=== PATIENT | female | born 1950 | race Asian ===

== ENCOUNTER 2018-09-20 10:50 | Observation (INO) | payer OTHER ==
[2018-09-20] MEDS ORDERED: ASPIRIN 81 MG CHEWABLE TABLETS PO ONE (11:33)
[2018-09-20 11:36] VITALS: BMI 23.4
--- NOTE | 2018-09-20 11:50 | PDOC ---
History of Present Illness - General Stated Complaint: CHEST PAIN Time Seen by Provider: 09/20/18 11:05 History Source: Patient, Spouse Exam Limitations: No Limitations - History of Present Illness Initial Comments: 09/20/18 11:43 67-year-old female with history of hypertension and high cholesterol presents with intermittent chest pain for the last 2 days. Patient first noted chest pain with significant dyspnea when she was climbing the stairs heading to [employer] on Wednesday, resolved with rest, but reports recurrence of the pain with exertion since then. Primary physician is in [facility] [place], does not recall ever having a stress test. Denies any travel history, no personal or family history of hypercoagulability, no symptoms of DVT. No fevers or chills or cough No smoking or drug use No weight loss or weight gain or night sweats Past History - Past Medical History Allergies/Adverse Reactions: Allergies Allergy/AdvReac Type Severity Reaction Status Date / Time No Known Allergies Allergy Verified 09/20/18 11:33 COPD: No - Suicide/Smoking/Psychosocial Hx Smoking History: Never smoked Have you smoked in the past 12 months: No Information on smoking cessation initiated: No Hx Alcohol Use: No Drug/Substance Use Hx: No Review of Systems - Review of Systems Constitutional: No: Chills, Fever HEENTM: No: Nose Congestion Respiratory: Yes: SOB with Exertion. No: Cough Cardiac (ROS): Yes: Chest Pain. No: Edema, Lightheadedness, Syncope ABD/GI: No: Nausea, Vomiting Neurological: No: Headache All Other Systems: Reviewed and Negative *Physical Exam - Vital Signs Last Vital Signs Temp Pulse Resp BP Pulse Ox 98.6 F 93 H 16 154/84 100 09/20/18 10:50 09/20/18 10:50 09/20/18 10:50 09/20/18 10:50 09/20/18 10:50 - Physical Exam Comments: 09/20/18 11:48 Vitals are within normal limits, heart rate 90s GENERAL: The patient is awake, alert, and fully oriented, in no acute distress. HEAD: Normal with no signs of trauma. EYES: PERRL, EOMI, sclera anicteric, conjunctiva clear with no pallor. ENT: oropharynx clear. Moist mucous membranes. NECK: Normal range of motion, supple without lymphadenopathy, JVD, or masses. LUNGS: Breath sounds equal, clear to auscultation bilaterally. No wheeze/ crackles. HEART: Regular rate and rhythm, normal S1 and S2 without murmur or rub. ABDOMEN: Soft/nontender/nondistended. BS wnl. No guarding or rebound. No palpable masses. No hepatosplenomegaly. EXTREMITIES: Normal range of motion, no edema. 2+ distal pulses. No cords, erythema, or tenderness. NEUROLOGICAL: Cranial nerves II through XII grossly intact. Normal speech, normal gait. PSYCH: Normal mood, normal affect. SKIN: Warm, Dry, no rashes or lesions noted. Moderate Sedation - Procedure Monitoring Vital Signs: Procedure Monitoring Vital Signs Temperature 98.6 F 09/20/18 10:50 Pulse Rate 93 H 09/20/18 10:50 Respiratory Rate 16 09/20/18 10:50 Blood Pressure 154/84 09/20/18 10:50 O2 Sat by Pulse Oximetry (%) 100 09/20/18 10:50 Heart Score/ECG Review #1 ECG reviewed & interpreted by me at: 10:56 General ECG Interpretation: Sinus Rhythm, Normal Rate (96), Normal Intervals ( qtc 429), No acute ischemic changes (q in avl) Compared to previous ECG there are: Previous ECG unavail ED Treatment Course - LABORATORY CBC & Chemistry Diagram: 09/20/18 11:57 09/20/18 11:57 - RADIOLOGY Radiology Studies Ordered: Category Date Time Status CHEST X-RAY PORTABLE* [RAD] Stat Radiology 09/20/18 11:34 Ordered Medical Decision Making - Medical Decision Making 09/20/18 11:52 67-year-old female with hypertension and high cholesterol presents with exertional chest pain and dyspnea for the last 2 days, concerning for new onset angina. Hemodynamically stable here without acute EKG changes. Labs, EKG Chest x-ray Aspirin Admission, requesting Dr. Sorensen for cardiology through family referral 09/20/18 13:20 labs wnl, trop negative. Accepted for obs tele by Dr. Beck, signout given to Dr. Agustin. They will consult Dr. Sorensen per patient request. *DC/Admit/Observation/Transfer Diagnosis at time of Disposition: Exertional chest pain - Discharge Dispostion Condition at time of disposition: Fair Decision to Admit order: Yes - Referrals - Patient Instructions - Post Discharge Activity
[2018-09-20] MEDS ORDERED: ASPIRIN 81 MG CHEWABLE TABLETS ONE (11:52)
[2018-09-20 12:04] LABS: BASO % 1.2 % (0-2.0); EOS % 0.5 % (0-4.5); HEMATOCRIT 40.5 % (32.4-45.2); LYMPH % 24.9 % (8-40); MCHC 34.6 g/dl (32.0-36.0); MEAN CELL VOLUME 86.7 fl (80-96); MEAN PLT VOLUME 8.3 fl (7.5-11.1); NEUT % 67.4 % (42.8-82.8); PLATELET COUNT 162 K/MM3 (134-434); RBC 4.67 M/mm3 (3.60-5.2); RDW 13.2 % (11.6-15.6); WHITE BLOOD COUNT 4.3 K/mm3 (4.0-10.0)
[2018-09-20 12:14] LABS: URINE APPEARANCE CLEAR; URINE BILIRUBIN NEGATIVE (<2.0 mg/dL); URINE COLOR STRAW; URINE GLUCOSE (UA) NEGATIVE (NEGATIVE); URINE KETONE NEGATIVE (NEGATIVE); URINE LEUK ESTERASE NEGATIVE (NEGATIVE); URINE NITRITE NEGATIVE (NEGATIVE); URINE PROTEIN NEGATIVE (NEGATIVE); URINE UROBILINOGEN NEGATIVE mg/dL (0.2-1.0)
[2018-09-20 12:15] LABS: INR 1.04 (0.83-1.09); PROTHROMBIN TIME (PATIENT) 12.3 SEC (9.7-13.0)
[2018-09-20 12:21] LABS: URINE MUCUS RARE
[2018-09-20 12:34] LABS: ALBUMIN 4.2 g/dl (3.4-5.0); ALK PHOS 56 U/L (45-117); ANION GAP 4 MMOL/L (8-16); BILIRUBIN,TOTAL 0.4 mg/dL (0.2-1); BLOOD UREA NITROGEN 13 mg/dL (7-18); CALCIUM 8.9 mg/dL (8.5-10.1); CHLORIDE 107 mmol/L (98-107); CO2 28 mmol/L (21-32); CREATININE 0.6 mg/dL (0.55-1.3); GLUCOSE,RANDOM 124 mg/dL (74-106); MAGNESIUM 2.3 mg/dL (1.8-2.4); SGOT/AST 35 U/L (15-37); SGPT/ALT 43 U/L (13-61); SODIUM 139 mmol/L (136-145); TOT PROT 7.3 g/dl (6.4-8.2)
--- NOTE | 2018-09-20 13:50 | HP ---
CHIEF COMPLAINT: chest pain PCP: dr chadwick in [facility] [place] HISTORY OF PRESENT ILLNESS: 67-year-old female with history of hypertension and high cholesterol presents with intermittent chest pain since 2011 but since Wednesday it is persistent. Pt states that on Wednesday she went to [employer]dhist and while going uphill she got short of breath which kept on getting worse since she take rest. Pt states that after buddhist when she came back to her house she started feeling pressure in chest and which got better after taking aspirin. States this is the first time it happen. Pain was present on left side, pressure type, non radiating, got better after aspirin, comes back on walking. DEnies palpitations, lightheadedness, dizziness, swelling in legs. Denies orthopnea, Denies fever, chills, cough. Denies recent travel No smoking or drug use No weight loss or weight gain or night sweats ER course was notable for: (1)cbc, cmp, troponin (2)cxr (3) Recent Travel:no PAST MEDICAL HISTORY:htn, hld, cirrhosis of liver PAST SURGICAL HISTORY:back surgery in 2011 Social History: Smoking:no Alcohol:no Drugs: no Family History:mother from stroke at age of 74 sister from cancer Allergies No Known Allergies Allergy (Verified 09/20/18 11:33) HOME MEDICATIONS: REVIEW OF SYSTEMS CONSTITUTIONAL: Absent: fever, chills, diaphoresis, generalized weakness, malaise, loss of appetite, weight change HEENT: Absent: rhinorrhea, nasal congestion, throat pain, throat swelling, difficulty swallowing, mouth swelling, ear pain, eye pain, visual changes CARDIOVASCULAR: Absent: chest pain, syncope, palpitations, irregular heart rate, lightheadedness , peripheral edema RESPIRATORY: Absent: cough, shortness of breath, dyspnea with exertion, orthopnea, wheezing, stridor, hemoptysis GASTROINTESTINAL: Absent: abdominal pain, abdominal distension, nausea, vomiting, diarrhea, constipation, melena, hematochezia GENITOURINARY: Absent: dysuria, frequency, urgency, hesitancy, hematuria, flank pain, genital pain MUSCULOSKELETAL: Absent: myalgia, arthralgia, joint swelling, back pain, neck pain SKIN: Absent: rash, itching, pallor HEMATOLOGIC/IMMUNOLOGIC: Absent: easy bleeding, easy bruising, lymphadenopathy, frequent infections ENDOCRINE: Absent: unexplained weight gain, unexplained weight loss, heat intolerance, cold intolerance NEUROLOGIC: Absent: headache, focal weakness or paresthesias, dizziness, unsteady gait, seizure, mental status changes, bladder or bowel incontinence PSYCHIATRIC: Absent: anxiety, depression, suicidal or homicidal ideation, hallucinations. PHYSICAL EXAMINATION Vital Signs - 24 hr 09/20/18 10:50 Temperature 98.6 F Pulse Rate 93 H Respiratory 16 Rate Blood Pressure 154/84 O2 Sat by Pulse 100 Oximetry (%) GENERAL: Awake, alert, and fully oriented, in no acute distress. HEAD: Normal with no signs of trauma. EYES: Pupils equal, round and reactive to light, EARS, NOSE, THROAT: Ears normal, nares patent, oropharynx clear without exudates. Moist mucous membranes. NECK:no JVD, or masses. LUNGS: Breath sounds equal, clear to auscultation bilaterally. No wheezes, and no crackles. No accessory muscle use. HEART: Regular rate and rhythm, normal S1 and S2 without murmur, rub or gallop. ABDOMEN: Soft, nontender, not distended, normoactive bowel sounds, no guarding, no rebound, no masses. MUSCULOSKELETAL: Normal range of motion at all joints. No bony deformities or tenderness. No CVA tenderness. UPPER EXTREMITIES: 2+ pulses, warm, well-perfused. No cyanosis. No clubbing. No peripheral edema. LOWER EXTREMITIES: , warm, well-perfused. No calf tenderness. No peripheral edema. NEUROLOGICAL: Cranial nerves II-XII intact. Normal speech. PSYCHIATRIC: Cooperative. Good eye contact. Appropriate mood and affect. SKIN: Warm, dry, normal turgor, no rashes or lesions noted, normal capillary refill. Laboratory Results - last 24 hr 09/20/18 09/20/18 09/20/18 11:57 11:57 11:57 WBC 4.3 RBC 4.67 Hgb 14.0 Hct 40.5 MCV 86.7 MCH 30.0 MCHC 34.6 RDW 13.2 Plt Count 162 MPV 8.3 Absolute Neuts (auto) 2.9 Neutrophils % 67.4 Lymphocytes % 24.9 Monocytes % 6.0 Eosinophils % 0.5 Basophils % 1.2 Nucleated RBC % 0 PT with INR 12.30 INR 1.04 Sodium 139 Potassium 4.0 Chloride 107 Carbon Dioxide 28 Anion Gap 4 L BUN 13 Creatinine 0.6 Creat Clearance w eGFR > 60 Random Glucose 124 H Calcium 8.9 Magnesium 2.3 Total Bilirubin 0.4 AST 35 ALT 43 Alkaline Phosphatase 56 Creatine Kinase 159 Creatine Kinase Index 1.6 CK-MB (CK-2) 2.6 Troponin I < 0.02 Total Protein 7.3 Albumin 4.2 Lipase Urine Color Urine Appearance Urine pH Ur Specific [place] Urine Protein Urine Glucose (UA) Urine Ketones Urine Blood Urine Nitrite Urine Bilirubin Urine Urobilinogen Ur Leukocyte Esterase Urine WBC (Auto) Urine RBC (Auto) Urine Mucus 09/20/18 09/20/18 11:57 12:05 WBC RBC Hgb Hct MCV MCH MCHC RDW Plt Count MPV Absolute Neuts (auto) Neutrophils % Lymphocytes % Monocytes % Eosinophils % Basophils % Nucleated RBC % PT with INR INR Sodium Potassium Chloride Carbon Dioxide Anion Gap BUN Creatinine Creat Clearance w eGFR Random Glucose Calcium Magnesium Total Bilirubin AST ALT Alkaline Phosphatase Creatine Kinase Creatine Kinase Index CK-MB (CK-2) Troponin I Total Protein Albumin Lipase 228 Urine Color Straw Urine Appearance Clear Urine pH 7.0 Ur Specific [place] 1.005 L Urine Protein Negative Urine Glucose (UA) Negative Urine Ketones Negative Urine Blood 1+ H Urine Nitrite Negative Urine Bilirubin Negative Urine Urobilinogen Negative Ur Leukocyte Esterase Negative Urine WBC (Auto) None Urine RBC (Auto) 2 Urine Mucus Rare ASSESSMENT/PLAN: Chest pain R/o acs heart score 4 initial set of troponin normal. get second set echo cardiac monitoring aspirin 81 mg daily atorvastatin 20 daily. Pt has h/o cirrhosis but is taking a cholestrol meds in home. LFT stable lipid profile. monitor vital monitor intake output o2 to keep spo2> 90 HTN we will start her on pam inhibitor HLD lipid profile statin h/o cirrhotic liver as per pt she is getting mri every 6 months and her cirrhosis is biopsy proven albumin 4.2 we will get pt/inr fluid: orally allowed electrolyte: repeat in am nutrition: low cholesterol and sodium diet dvt pro: scd gi pro; not required dispo: obs tele Visit type - Emergency Visit Emergency Visit: Yes ED Registration Date: 09/20/18 Care time: The patient presented to the Emergency Department on the above date and was hospitalized for further evaluation of their emergent condition. - New Patient This patient is new to me today: Yes Date on this admission: 09/20/18 - Critical Care Critical Care patient: No
[2018-09-20] MEDS ORDERED: amLODIPine BESYLATE 5 MG TABLET (FP) PO SCH (15:00)
[2018-09-20] MEDS ORDERED: NITROGLYCERIN SUBLINGUAL 1/150 0.4 MG TAB SL PRN (16:38)
--- NOTE | 2018-09-20 16:38 | PN ---
Teaching Attending Note Name of Resident: Donald Agustin ATTENDING PHYSICIAN STATEMENT I saw and evaluated the patient. I reviewed the resident's note and discussed the case with the resident. I agree with the resident's findings and plan as documented. Mrs Neal is a very pleasant 67 year old female who comes in with chest pain. She says she was at [employer] on Wednesday, and while walking up the stairs she developed substernal chest pressure. She says it is mainly in her chest and does not radiate. It was noted on exertion and went away with rest. It is a pressure like pain. It has not resolved and she presented here. She is currently pain free but is also not moving. She denies fevers, chills, lightheadedness, dizziness, passing out, shortness of breath, coughing, nausea, vomiting, diarrhea, constipation, pain or difficulty urinating, or swelling. PMHx 1. HTN 2. HLD PSHx 1. None Allergies NKDA Medications -patient does not know and did not bring SHx -denies smoking, alcohol, recreational drug use FHx 1. Father: stroke () 2. Sister: gastric cancer ROS -full review of systems obtained, as per HPI and otherwise negative OBJECTIVE: Last Vital Signs Temp Pulse Resp BP Pulse Ox 37.0 C 93 H 16 154/84 100 09/20/18 10:50 09/20/18 10:50 09/20/18 10:50 09/20/18 10:50 09/20/18 10:50 Gen: nad HEENT: perrla, eomi Pulm: ctab w/o w/r/r CV: rrr w/o m/r/g Abd: +bs, s/nt/nd Ext: no c/c/e CBC, BMP 09/20/18 11:57 09/20/18 11:57 ASSESSMENT AND PLAN: Problem List - Problems (1) Unstable angina Assessment/Plan: -admit to telemetry observation -cardiology consulted, will consult Dr Nash Sorensen per patient request -cardiac enzymes x3 -ECHO -stress test in am -will hold on beta shalini since planning for stress test -oxygen, nitro, aspirin, lisinopril, and lipitor Code(s): I20.0 - UNSTABLE ANGINA (2) HTN (hypertension) Assessment/Plan: -lisinopril started -monitor and increase if needed Code(s): I10 - ESSENTIAL (PRIMARY) HYPERTENSION (3) HLD (hyperlipidemia) Assessment/Plan: -lipitor Code(s): E78.5 - HYPERLIPIDEMIA, UNSPECIFIED
[2018-09-20] MEDS ORDERED: LISINOPRIL 5 MG TABLET (FP) ONE (17:15)
[2018-09-20] MEDS: LISINOPRIL 5 MG TABLET (FP) PO SCH (17:30)
--- NOTE | 2018-09-20 19:50 | CON.CARD ---
Consult Consult Specialty:: Cardiology Referred by:: Requested by patient Reason for Consultation:: Cardiac evaluation - History of Present Illness Chief Complaint: Chest pain and SOB on exertion History of Present Illness: Patient is a 67 year old [place] female with underlying history of HTN, hypercholesterolemia, fatty liver with cirrhosis (followed by GI affiliated with [facility]) who presents with episode of shortness of breath on walking on Wednesday (2 days ago) and mid sternal chest tightness. She also had some nausea and vomiting that day, but her symptoms subsided and she did not seek medical attention. Her symptoms recurred again early this am and was referred by a friend to come to my office where she was advised to go to the hospital. Of note , she states that she had an echocardiogram last year by a integration developer in [place]. Currently she denies SOB or palpitations. She denies paroxysmal nocturnal dyspnea or orthopnea. She denies fever or chills. She denies nausea, vomiting, diarrhea or abdominal pain. She denies headache or lightheadedness at this time. - History Source History Provided By: Patient, Family Member, Medical Record Limitations to Obtaining History: No Limitations - Past Medical History Cardio/Vascular: Yes: HTN, Hyperlipdemia Pulmonary: No: Asthma, COPD Gastrointestinal: Yes: GERD, Other (Fatty liver, cirrhosis) Endocrine: Yes: Diabetes Mellitus (Pre diabetes), Hypothyroidism - Past Surgical History Additional Surgical History: Back surgery - Alcohol/Substance Use Hx Alcohol Use: No - Smoking History Smoking history: Never smoked Have you smoked in the past 12 months: No Home Medications - Allergies Allergies/Adverse Reactions: Allergies Allergy/AdvReac Type Severity Reaction Status Date / Time No Known Allergies Allergy Verified 09/20/18 11:33 - Home Medications Home Medications: Ambulatory Orders Amlodipine Besylate 5 mg PO ASDIR 09/20/18 Ascorbic Acid [Vitamin C] 500 mg PO ASDIR 09/20/18 Aspirin [Aspirin EC] 81 mg PO DAILY 09/20/18 Dexlansoprazole [Dexilant] 60 mg PO ASDIR 09/20/18 Lipase/Protease/Amylase [Creon Dr 36,000 Units Capsule] 1 each PO ASDIR Simvastatin [Zocor -] 20 mg PO HS 09/20/18 Ursodiol [Actigall] 300 mg PO ASDIR 09/20/18 Family Disease History - Family Disease History Family Disease History: CA: Sister (Gastric), Other: Mother (CVA) Other Family History: History of DM Review of Systems - Review of Systems Constitutional: denies: Chills, Fever Cardiovascular: reports: Chest Pain, Shortness of Breath. denies: Palpitations Respiratory: reports: SOB, SOB on Exertion. denies: Cough, Hemoptysis, Orthopnea, PND Gastrointestinal: reports: Nausea, Vomiting. denies: Abdominal Pain, Constipation, Diarrhea, Melena, Rectal Bleeding Musculoskeletal: denies: Back Pain, Joint Pain Neurological: reports: Dizziness. denies: Headache, Seizure, Syncope Vital Signs: Vital Signs Temperature 97.7 F 09/20/18 17:45 Pulse Rate 72 09/20/18 17:45 Respiratory Rate 14 09/20/18 17:45 Blood Pressure 118/73 09/20/18 17:45 O2 Sat by Pulse Oximetry (%) 97 09/20/18 17:45 Eyes: Yes: PERRL HENT: Yes: Atraumatic Neck: Yes: Supple Respiratory: Yes: CTA Bilaterally Gastrointestinal: Yes: Normal Bowel Sounds, Soft. No: Tenderness Cardiovascular: Yes: Regular Rate and Rhythm JVD: No Carotid Bruit: No PMI: Non-Displaced Heart Sounds: Yes: S1, S2. No: Gallop Murmur: No: Systolic Murmur, Diastolic Murmur Edema: No - Other Data Labs, Other Data: CBC, BMP 09/20/18 11:57 09/20/18 11:57 INR, PTT INR 1.04 (0.83-1.09) 09/20/18 11:57 Troponin, BNP 09/20/18 11:57 Troponin I < 0.02 Laboratory Results - last 24 hr 09/20/18 09/20/18 09/20/18 11:57 11:57 11:57 WBC 4.3 RBC 4.67 Hgb 14.0 Hct 40.5 MCV 86.7 MCH 30.0 MCHC 34.6 RDW 13.2 Plt Count 162 MPV 8.3 Absolute Neuts (auto) 2.9 Neutrophils % 67.4 Lymphocytes % 24.9 Monocytes % 6.0 Eosinophils % 0.5 Basophils % 1.2 Nucleated RBC % 0 PT with INR 12.30 INR 1.04 Sodium 139 Potassium 4.0 Chloride 107 Carbon Dioxide 28 Anion Gap 4 L BUN 13 Creatinine 0.6 Creat Clearance w eGFR > 60 Random Glucose 124 H Calcium 8.9 Magnesium 2.3 Total Bilirubin 0.4 AST 35 ALT 43 Alkaline Phosphatase 56 Creatine Kinase 159 Creatine Kinase Index 1.6 CK-MB (CK-2) 2.6 Troponin I < 0.02 Total Protein 7.3 Albumin 4.2 Lipase Urine Color Urine Appearance Urine pH Ur Specific [place] Urine Protein Urine Glucose (UA) Urine Ketones Urine Blood Urine Nitrite Urine Bilirubin Urine Urobilinogen Ur Leukocyte Esterase Urine WBC (Auto) Urine RBC (Auto) Urine Mucus 09/20/18 09/20/18 11:57 12:05 WBC RBC Hgb Hct MCV MCH MCHC RDW Plt Count MPV Absolute Neuts (auto) Neutrophils % Lymphocytes % Monocytes % Eosinophils % Basophils % Nucleated RBC % PT with INR INR Sodium Potassium Chloride Carbon Dioxide Anion Gap BUN Creatinine Creat Clearance w eGFR Random Glucose Calcium Magnesium Total Bilirubin AST ALT Alkaline Phosphatase Creatine Kinase Creatine Kinase Index CK-MB (CK-2) Troponin I Total Protein Albumin Lipase 228 Urine Color Straw Urine Appearance Clear Urine pH 7.0 Ur Specific [place] 1.005 L Urine Protein Negative Urine Glucose (UA) Negative Urine Ketones Negative Urine Blood 1+ H Urine Nitrite Negative Urine Bilirubin Negative Urine Urobilinogen Negative Ur Leukocyte Esterase Negative Urine WBC (Auto) None Urine RBC (Auto) 2 Urine Mucus Rare NSR, no ST-T abnormality Imaging - Results Chest X-ray: Report Reviewed (Unremarkable) EKG: Report Reviewed Problem List - Problems (1) Shortness of breath Code(s): R06.02 - SHORTNESS OF BREATH (2) Pre-diabetes Code(s): R73.03 - PREDIABETES (3) GERD (gastroesophageal reflux disease) Code(s): K21.9 - GASTRO-ESOPHAGEAL REFLUX DISEASE WITHOUT ESOPHAGITIS (4) Fatty liver Code(s): K76.0 - FATTY (CHANGE OF) LIVER, NOT ELSEWHERE CLASSIFIED (5) Exertional chest pain Code(s): R07.9 - CHEST PAIN, UNSPECIFIED (6) HLD (hyperlipidemia) Code(s): E78.5 - HYPERLIPIDEMIA, UNSPECIFIED Qualifiers: Hyperlipidemia type: pure hypercholesterolemia Qualified Code(s): E78.00 - Pure hypercholesterolemia, unspecified; E78.0 - Pure hypercholesterolemia (7) HTN (hypertension) Code(s): I10 - ESSENTIAL (PRIMARY) HYPERTENSION Qualifiers: Hypertension type: essential hypertension Qualified Code(s): I10 - Essential (primary) hypertension Assessment/Plan 1. Chest pain and shortness of breath, rule out CAD 2. HTN 3. Hypercholesterolemia 4. Pre-diabetes mellitus 5. Fatty liver with previous history of abnormal LFT currently stable 6. GERD PLAN: 1. Serial troponins 2. Continue Amlodipine 5 mg QD 3. Patient given Lisinopril 5 mg QD 4. ASA 5. Statin therapy. Check fasting lipid panel 6. Check Hbg A1C 7. Agree with transthoracic echocardiography to assess LV/RV and valvular function 8. If above enzymes are negative, will decide on nuclear MPI either inpatient or as outpatient. Keep NPO in the morning 9. PPI Further plans are to follow Nash Sorensen MD
[2018-09-20] MEDS ORDERED: ATORVASTATIN CA 20 MG TABLET (FP) PO SCH (22:00)
[2018-09-21 06:47] LABS: INR 1.08 (0.83-1.09); PROTHROMBIN TIME (PATIENT) 12.7 SEC (9.7-13.0)
[2018-09-21 06:49] LABS: BASO % 0.6 % (0-2.0); HEMATOCRIT 37.7 % (32.4-45.2); HEMOGLOBIN 13.2 GM/dL (10.7-15.3); LYMPH % 49.4 % (8-40); MCH 29.9 pg (25.7-33.7); MCHC 35.1 g/dl (32.0-36.0); MEAN CELL VOLUME 85.2 fl (80-96); MEAN PLT VOLUME 8.6 fl (7.5-11.1); MONO % 6.4 % (3.8-10.2); NEUT % 41.6 % (42.8-82.8); PLATELET COUNT 153 K/MM3 (134-434); RBC 4.42 M/mm3 (3.60-5.2); RDW 13.1 % (11.6-15.6); WHITE BLOOD COUNT 4.8 K/mm3 (4.0-10.0)
[2018-09-21 07:22] LABS: ALBUMIN 3.8 g/dl (3.4-5.0); ALK PHOS 48 U/L (45-117); ANION GAP 7 MMOL/L (8-16); BILIRUBIN,TOTAL 0.4 mg/dL (0.2-1); BLOOD UREA NITROGEN 17 mg/dL (7-18); CALCIUM 8.7 mg/dL (8.5-10.1); CHLORIDE 109 mmol/L (98-107); CHOLESTEROL 127 mg/dL (50-200); CO2 27 mmol/L (21-32); CREATININE 0.6 mg/dL (0.55-1.3); GLUCOSE,RANDOM 82 mg/dL (74-106); HDL CHOLESTEROL 47 mg/dL (40-60); MAGNESIUM 2.3 mg/dL (1.8-2.4); PHOSPHOROUS 3.8 mg/dL (2.5-4.9); POTASSIUM 3.9 mmol/L (3.5-5.1); SGOT/AST 26 U/L (15-37); SGPT/ALT 33 U/L (13-61); SODIUM 143 mmol/L (136-145); TOT PROT 6.5 g/dl (6.4-8.2); TRIGLYCERIDES 87 mg/dL (0-150)
--- NOTE | 2018-09-21 07:43 | PN ---
Teaching Attending Note Name of Resident: Donald Agustin ATTENDING PHYSICIAN STATEMENT I saw and evaluated the patient. I reviewed the resident's note and discussed the case with the resident. I agree with the resident's findings and plan as documented. SUBJECTIVE: Asymptomatic OBJECTIVE: Last Vital Signs Temp Pulse Resp BP Pulse Ox 98.4 F 84 18 122/72 96 09/21/18 10:00 09/21/18 10:00 09/21/18 10:00 09/21/18 10:00 09/21/18 01:56 Elderly F not in distress chest pain free HEENT: Mm moist, no anemia, PERRLA EOMI NECK:No JVd No Bruit CHEST:CTA B/L CVS:S1S2 R no m/g/r ABD:No distention, non tender Bs EXT:No edema feet, no calf tenderness LETTUCE CUTTER:AOx3 non focal LABS: CBC, BMP 09/21/18 06:00 09/21/18 06:00 ECHO: Normal Stress Test: no inducible ischemia, fixed defect most likely artifact Active Medications Aspirin (Asa -) 81 mg PO DAILY [facility] Last Admin: 09/21/18 11:53 Dose: 81 mg Atorvastatin Calcium (Lipitor -) 20 mg PO HS [facility] Last Admin: 09/20/18 23:02 Dose: 20 mg Lisinopril (Prinivil) 5 mg PO DAILY [facility] Last Admin: 09/21/18 07:45 Dose: 5 mg Nitroglycerin (Nitrostat -) 0.4 mg SL Q5M PRN PRN Reason: FOR CHEST PAIN ASSESSMENT AND PLAN:67 yrs old f with h/o HTn, Hypercholasterolemia , present with atypical CP with non specifics early repolarisation, normal serial CE and ECHO, non dynamic EKG, NST no inducible ischemia, evaluated by Cardiology; Plan; Can be Dc on home medication and ASA 81 mg Daily DC NTG, ASA as patient has H/O GERD and Cirrhosis due to [place] Problem List - Problems (1) Chest pain Code(s): R07.9 - CHEST PAIN, UNSPECIFIED (2) HLD (hyperlipidemia) Code(s): E78.5 - HYPERLIPIDEMIA, UNSPECIFIED Qualifiers: Hyperlipidemia type: pure hypercholesterolemia Qualified Code(s): E78.00 - Pure hypercholesterolemia, unspecified; E78.0 - Pure hypercholesterolemia (3) HTN (hypertension) Code(s): I10 - ESSENTIAL (PRIMARY) HYPERTENSION Qualifiers: Hypertension type: essential hypertension Qualified Code(s): I10 - Essential (primary) hypertension (4) Pre-diabetes Code(s): R73.03 - PREDIABETES (5) Fatty liver Code(s): K76.0 - FATTY (CHANGE OF) LIVER, NOT ELSEWHERE CLASSIFIED
[2018-09-21] MEDS: LISINOPRIL 5 MG TABLET (FP) PO SCH (07:45)
[2018-09-21] MEDS ORDERED: REGADENOSON 0.4 MG/5 ML PRE-FILLED SYRINGE IVPUSH ONE ×2 (09:15→09:23)
--- NOTE | 2018-09-21 09:33 | PN ---
Progress Note, Physician History of Present Illness: Denies chest pain, but does report [place], CV studies negative. - Current Medication List Current Medications: Active Medications Aspirin (Asa -) 81 mg PO DAILY [facility] Atorvastatin Calcium (Lipitor -) 20 mg PO HS [facility] Last Admin: 09/20/18 23:02 Dose: 20 mg Lisinopril (Prinivil) 5 mg PO DAILY [facility] Last Admin: 09/20/18 17:30 Dose: 5 mg Nitroglycerin (Nitrostat -) 0.4 mg SL Q5M PRN PRN Reason: FOR CHEST PAIN - Objective Vital Signs: Vital Signs Temperature 97.9 F 09/21/18 06:00 Pulse Rate 84 09/21/18 06:00 Respiratory Rate 18 09/21/18 06:00 Blood Pressure 134/65 09/21/18 06:00 O2 Sat by Pulse Oximetry (%) 96 09/21/18 01:56 Constitutional: Yes: No Distress, Calm Neck: Yes: Supple Cardiovascular: Yes: Regular Rate and Rhythm Respiratory: Yes: Regular, CTA Bilaterally Gastrointestinal: Yes: Normal Bowel Sounds, Soft Edema: No Labs: CBC, BMP 09/21/18 06:00 09/21/18 06:00 INR, PTT INR 1.08 (0.83-1.09) 09/21/18 06:00 - ....Imaging EKG: Report Reviewed (Tele: NSR) Problem List - Problems (1) Exertional chest pain Code(s): R07.9 - CHEST PAIN, UNSPECIFIED (2) HLD (hyperlipidemia) Code(s): E78.5 - HYPERLIPIDEMIA, UNSPECIFIED Qualifiers: Hyperlipidemia type: pure hypercholesterolemia Qualified Code(s): E78.00 - Pure hypercholesterolemia, unspecified; E78.0 - Pure hypercholesterolemia (3) HTN (hypertension) Code(s): I10 - ESSENTIAL (PRIMARY) HYPERTENSION Qualifiers: Hypertension type: essential hypertension Qualified Code(s): I10 - Essential (primary) hypertension (4) Shortness of breath Code(s): R06.02 - SHORTNESS OF BREATH Assessment/Plan 09/21/2018 Normal LV and RV size and fxn, mild MR, TR 09/21/2018 Regadenoson MPI: No ischemia, normal LV fxn 1. Chest pain and shortness of breath, MPI without ischemia 2. HTN 3. Hypercholesterolemia 4. Pre-diabetes mellitus 5. Fatty liver with previous history of abnormal LFT currently stable 6. GERD PLAN: 1. Ruled out for [place] 2. Continue Amlodipine 5 mg QD, Lisinopril 5 mg QD, ASA 81 qd and Lipitor 20qd, trial of short-acting BD 3. November d/c home with f/u with Dr. Nash Sorensen in office
[2018-09-21] MEDS ORDERED: ASPIRIN 81 MG CHEWABLE TABLETS PO SCH (10:00)
--- NOTE | 2018-09-21 10:46 | EKG ---
Test Reason : Blood Pressure : / mmHG Vent. Rate : 096 BPM Atrial Rate : 096 BPM P-R Int : 158 ms QRS Dur : 084 ms QT Int : 340 ms P-R-T Axes : 016 070 016 degrees QTc Int : 429 ms NORMAL SINUS RHYTHM NORMAL ECG NO PREVIOUS ECGS AVAILABLE Confirmed by MARTIN MITCHELL, JUJU ([id number]) on 09/21/2018 10:45:45 AM Referred By: Confirmed By:JUJU SALAZAR MD
[2018-09-21 10:57] VITALS: BP 122/72; TEMP 98.4
--- NOTE | 2018-09-21 11:34 | ECHO ---
Name: FLORINDA CASILLAS Exam:Adult Echocardiogram Study Date: 09/21/2018 07:51 AM Age: 67 yrs Reason For Study: Chest pain Height: 60 in Weight: 120 lb BSA: 1.5 m2 MMode/2D Measurements & Calculations IVSd: 0.98 cm Ao root diam: 3.6 cm LVIDd: 4.4 cm LA dimension: 2.9 cm LVIDs: 3.1 cm LVPWd: 0.70 cm EDV(Teich): 89.4 ml LVOT diam: 2.1 cm ESV(Teich): 38.7 ml TAPSE: 2.0 cm RV S Dino: 10.2 cm/sec Doppler Measurements & Calculations MV E max dino: 62.7 cm/sec TR max dino: 216.6 cm/sec MV A max dino: 80.5 cm/sec TR max P.8 mmHg MV E/A: 0.78 Med Peak E' Dino: 5.6 cm/sec Med E/e': 11.2 Lat Peak E' Dino: 6.6 cm/sec Lat E/e': 9.5 Procedure A two-dimensional transthoracic echocardiogram with color flow and Doppler was performed. Left Ventricle The left ventricular size, thickness and function are normal. The left ventricular ejection fraction is normal. E/A reversal consistent with but not diagnostic of poor LV compliance. The left ventricular w all motion is normal. Right Ventricle The right ventricle is normal in size and function. Atria Normal left and right atrial size and function. Mitral Valve There is mild mitral valve thickening. There is no mitral valve stenosis. There is mild mitral regurg itation. Tricuspid Valve There is trivial tricuspid valve thickening. There is no tricuspid stenosis. There is mild tricuspid regurgitation. Right ventricular systolic pressure is normal. Aortic Valve The aortic valve is not well visualized. No hemodynamically significant valvular aortic stenosis. No aortic regurgitation is present. Pulmonic Valve The pulmonic valve is not well visualized. Great Vessels The aortic root is normal size. Pericardium/Pleura There is no pericardial effusion. Interpretation Summary The left ventricular size, thickness and function are normal The left ventricular ejection fraction is normal. The left ventricular wall motion is normal. There is mild tricuspid regurgitation. Right ventricular systolic pressure is normal. E/A reversal consistent with but not diagnostic of poor LV compliance There is mild mitral regurgitation. MD Bladimir Matthews 09/21/2018 11:33 AM
[2018-09-21] MEDS ORDERED: ALBUTEROL SO4 2.5/IPRATROPIUM 0.5 INH SOL 3 ML VIAL.NEB. NEB ONE (12:59)
--- NOTE | 2018-09-21 12:59 | DS ---
Physical Exam: SUBJECTIVE: Patient seen and examined OBJECTIVE: Vital Signs Period Temp Pulse Resp BP Sys/[place] Pulse Ox Last 24 Hr 97.7 F-98.4 F 67-84 14-18 108-134/65-73 96-97 PHYSICAL EXAM GENERAL: The patient is awake, alert, and fully oriented, in no acute distress. HEAD: Normal with no signs of trauma. EYES: PERRL, extraocular movements intact, sclera anicteric, conjunctiva clear. ENT: Ears normal, nares patent, oropharynx clear without exudates, moist mucous membranes. NECK: Trachea midline, full range of motion, supple. LUNGS: Breath sounds equal, clear to auscultation bilaterally, no wheezes, no crackles, no accessory muscle use. HEART: Regular rate and rhythm, S1, S2 without murmur, rub or gallop. ABDOMEN: Soft, nontender, nondistended, normoactive bowel sounds, no guarding, no rebound, no hepatosplenomegaly, no masses. EXTREMITIES: 2+ pulses, warm, well-perfused, no edema. NEUROLOGICAL: Cranial nerves II through XII grossly intact. Normal speech, gait not observed. PSYCH: Normal mood, normal affect. SKIN: Warm, dry, normal turgor, no rashes or lesions noted. LABS Laboratory Results - last 24 hr 09/20/18 09/21/18 09/21/18 20:10 06:00 06:00 WBC 4.8 RBC 4.42 Hgb 13.2 Hct 37.7 MCV 85.2 MCH 29.9 MCHC 35.1 RDW 13.1 Plt Count 153 MPV 8.6 Absolute Neuts (auto) 2.0 Neutrophils % 41.6 L D Lymphocytes % 49.4 H D Monocytes % 6.4 Eosinophils % 2.0 D Basophils % 0.6 Nucleated RBC % 0 PT with INR 12.70 INR 1.08 Sodium Potassium Chloride Carbon Dioxide Anion Gap BUN Creatinine Creat Clearance w eGFR Random Glucose Hemoglobin A1c % Calcium Phosphorus Magnesium Total Bilirubin AST ALT Alkaline Phosphatase Creatine Kinase Troponin I < 0.02 Total Protein Albumin Triglycerides Cholesterol Total LDL Cholesterol HDL Cholesterol 09/21/18 09/21/18 06:00 06:00 WBC RBC Hgb Hct MCV MCH MCHC RDW Plt Count MPV Absolute Neuts (auto) Neutrophils % Lymphocytes % Monocytes % Eosinophils % Basophils % Nucleated RBC % PT with INR INR Sodium 143 Potassium 3.9 Chloride 109 H Carbon Dioxide 27 Anion Gap 7 L BUN 17 Creatinine 0.6 Creat Clearance w eGFR > 60 Random Glucose 82 Hemoglobin A1c % 6.0 Calcium 8.7 Phosphorus 3.8 Magnesium 2.3 Total Bilirubin 0.4 AST 26 ALT 33 Alkaline Phosphatase 48 Creatine Kinase 144 Troponin I < 0.02 Total Protein 6.5 Albumin 3.8 Triglycerides 87 Cholesterol 127 Total LDL Cholesterol 69 HDL Cholesterol 47 HOSPITAL COURSE: 67-year-old female with history of hypertension and high cholesterol presents with intermittent chest pain since 2011 but since Wednesday it is persistent. Pt states that on Wednesday she went to [employer] and while going uphill she got short of breath which kept on getting worse since she take rest. Pt states that after [employer] when she came back to her house she started feeling pressure in chest and which got better after taking aspirin. States this is the first time it happen. Pain was present on left side, pressure type, non radiating, got better after aspirin, comes back on walking. DEnies palpitations , lightheadedness, dizziness, swelling in legs. Denies orthopnea, Denies fever, chills, cough. Denies recent travel In hospital examination an dinvestigations were done. Pt was started on aspirin , lisinopril and ventolin inhaler . ECHO and stress test was also done in hospital which are reviewed by digital marketing specialist. Cardiology Dr Sorensen was consulted. Now PT symptoms improved and pt is dc in stable condition. We have started you on lisinopril 5 mg daily. Take all your other medications as you were taking before. We have also started you on ventolin inhaler. Use it if you feel short of breath or gets wheezing Follow up with your pcp Follow up with digital marketing specialist Dr Sorensen Monitor your blood pressure and make a log and present log to your pcp We have started you on baby aspirin. If you again develop chest pain, shortness of breath, lightheadedness, dizziness or any new symptoms then contact doctor or go to hospital. Date of Admission:09/20/18 Date of Discharge: 09/21/18 Minutes to complete discharge: 45 Discharge Summary Reason For Visit: CHEST PAIN ON EXERTION Current Active Problems Exertional chest pain (Acute) Fatty liver (Acute) GERD (gastroesophageal reflux disease) (Acute) HLD (hyperlipidemia) (Acute) HTN (hypertension) (Acute) Pre-diabetes (Acute) Shortness of breath (Acute) Unstable angina (Acute) Condition: Stable - Instructions Diet, Activity, Other Instructions: We have started you on lisinopril 5 mg daily. Take all your other medications as you were taking before. We have also started you on ventolin inhaler. Use it if you feel short of breath or gets wheezing Follow up with your pcp Follow up with digital marketing specialist Dr Sorensen Monitor your blood pressure and make a log and present log to your pcp We have started you on baby aspirin. If you again develop chest pain, shortness of breath, lightheadedness, dizziness or any new symptoms then contact doctor or go to hospital. Referrals: Shree Madrid MD [Primary Care Provider] - Nash Sorensen MD [Staff Physician] - 1 Week Disposition: HOME - Home Medications Comprehensive Discharge Medication List: Ambulatory Orders Ascorbic Acid [Vitamin C] 500 mg PO ASDIR 09/20/18 Aspirin [Aspirin EC] 81 mg PO DAILY 09/20/18 Dexlansoprazole [Dexilant] 60 mg PO [facility] 09/20/18 Lipase/Protease/Amylase [Serafin Clark 36,000 Units Capsule] 1 each PO ASDIR Simvastatin [Zocor -] 20 mg PO HS 09/20/18 Ursodiol [Actigall] 300 mg PO ASDIR 09/20/18 Albuterol 0.083% Nebulizer Nurys [Ventolin 0.083% Nebulizer Soln -] 1 amp NEB PRN #1 amp 09/21/18 Aspirin [ASA -] 81 mg PO DAILY tab.chew 09/21/18 Lisinopril 5 mg PO DAILY #30 tablet 09/21/18 This patient is new to me today: No Emergency Visit: Yes ED Registration Date: 09/20/18 Care time: The patient presented to the Emergency Department on the above date and was hospitalized for further evaluation of their emergent condition. Critical Care patient: No - Discharge Referral Referred to [facility] Med P.C.: No
[2018-09-21 13:19] VITALS: PULSE 85
== END 2018-09-21 14:01 | disposition home or self-care (01) ==
LOC: JER 10:50 → JERBED 13:20 → J4S 09-21 00:42
PROVIDERS: ADMIT Internal Medicine; ATTEND Internal Medicine
PROC: 3E033GC Introduction of Other Therapeutic Substance into Peripheral Vein, Percutaneous Approach (ICD-10-PCS; principal; 2018-09-20)
PROC: 3E0F7GC Introduction of Other Therapeutic Substance into Respiratory Tract, Via Natural or Artificial Opening (ICD-10-PCS; 2018-09-20)
DX: R07.89 Other chest pain (principal); I20.0 Unstable angina; R06.02 Shortness of breath; I10 Essential (primary) hypertension; E78.5 Hyperlipidemia, unspecified; K76.0 Fatty (change of) liver, not elsewhere classified; K74.60 Unspecified cirrhosis of liver; R73.03 Prediabetes; K21.9 Gastro-esophageal reflux disease without esophagitis
CPT/HCPCS: 36415; 71045-TC-FY; 78452-TC; 80053; 80061; 81003; 81015; 82550; 82553; 83036; 83690; 83721; 83735; 84100; 84484; 85025; 85610; 93005; 93010; 93017; 93306-TC; 94640; 94761; 96374; 99281-25; 99285-25; A9502; G0378; J2785

== ENCOUNTER 2024-09-12 13:55 | Observation (INO) | payer OTHER ==
[2024-09-12 14:11] VITALS: BMI 54.3
[2024-09-12 14:57] LABS: BASO % 0.7 % (0-2.0); HEMATOCRIT 38.8 % (32.4-45.2); HEMOGLOBIN 13.4 GM/dL (10.7-15.3); LYMPH % 26.3 % (8-40); MCH 28.8 pg (25.7-33.7); MCHC 34.6 g/dl (32.0-36.0); MEAN CELL VOLUME 83.1 fl (80-96); MONO % 6.9 % (3.8-10.2); NEUT % 65.1 % (42.8-82.8); RBC 4.67 M/mm3 (3.60-5.2); RDW 13.9 % (11.6-15.6); WHITE BLOOD COUNT 5.3 K/mm3 (4.0-10.0)
[2024-09-12 15:22] LABS: POTASSIUM 4.2 mmol/L (3.5-5.1)
[2024-09-12 15:24] LABS: ALBUMIN 4.5 g/dl (3.4-5.0); BLOOD UREA NITROGEN 12.2 mg/dL (7-18); CALCIUM 9.8 mg/dL (8.5-10.1)
[2024-09-12 15:27] LABS: CREATININE 0.7 mg/dL (0.55-1.3)
[2024-09-12 15:29] LABS: BILIRUBIN,TOTAL 0.6 mg/dL (0.2-1); TOT PROT 7.6 g/dl (6.4-8.2)
[2024-09-12 15:33] LABS: N-TERMINAL BNP 49.1 pg/ml (5-450)
[2024-09-12] MEDS ORDERED: FENTANYL CITRATE/PF 50 MCG/ML VIAL ONE ×2 (17:43→18:10)
[2024-09-12] MEDS ORDERED: AZITHROMYCIN 500 MG TABLET ONE (19:33)
[2024-09-12] MEDS ORDERED: CEFTRIAXONE 1 G/50 ML PREMIX 50 ML IVPB ONE (19:34)
[2024-09-12] MEDS ORDERED: morphine SULFATE 4 MG/ML VIAL ONE (19:38)
[2024-09-12] MEDS: morphine CARPU-JECT 4 MG/1 ML DISP.SYRIN IVPUSH ONE (19:42)
[2024-09-12] MEDS: AZITHROMYCIN 250 MG TABLET PO ONE (19:48)
[2024-09-12] MEDS ORDERED: ACETAMINOPHEN INJECTION 100 ML ONE (21:27)
[2024-09-12] MEDS ORDERED: KETOROLAC TROMETHAMINE 15 MG/ML VIAL ONE (21:27)
[2024-09-12] MEDS: KETOROLAC TROMETHAMINE 15 MG/ML VIAL IVPUSH ONE (21:32)
[2024-09-12] MEDS: ACETAMINOPHEN 1000 MG/100 ML BAG IVPB ONE (21:32)
[2024-09-12] MEDS ORDERED: GABAPENTIN 300 MG CAPSULE ONE (23:17)
[2024-09-12] MEDS ORDERED: QUEtiapine FUMARATE 100 MG TABLET (FP) ONE (23:17)
[2024-09-12] MEDS ORDERED: ATORVASTATIN CA 10 MG TABLET (FP) ONE (23:17)
[2024-09-12] MEDS: ATORVASTATIN CA 10 MG TABLET (FP) PO SCH (23:36)
[2024-09-12] MEDS: URSODIOL 300 MG CAPSULE PO SCH (23:36)
[2024-09-12] MEDS: CALCIUM 500MG/VIT-D 200 UNITS COMBO TABLET (FP) PO SCH (23:36)
[2024-09-12] MEDS: GABAPENTIN 300 MG CAPSULE PO SCH (23:36)
[2024-09-12] MEDS: QUEtiapine FUMARATE 100 MG TABLET (FP) PO SCH (23:37)
[2024-09-13] MEDS ORDERED: methylPREDNISolone NA SUCC 40 MG/1 ML VIAL ONE ×4 (00:12→14:58)
[2024-09-13] MEDS: methylPREDNISolone NA SUCC 40 MG/1 ML VIAL IVPUSH ONE (00:20)
[2024-09-13 00:58] LABS: INR 1.06 (0.83-1.09); PROTHROMBIN TIME (PATIENT) 11.7 SEC (9.7-13.0)
[2024-09-13 01:00] LABS: ACTIVATED PTT 29.1 SECONDS (25.2-36.5)
[2024-09-13] MEDS ORDERED: morphine CARPU-JECT 4 MG/1 ML DISP.SYRIN IVPUSH PRN (02:26)
[2024-09-13] MEDS ORDERED: MORPHINE SULFATE 2 MG/ML SYRINGE ONE ×2 (02:38→06:24)
[2024-09-13] MEDS: MORPHINE SULFATE 2 MG/ML SYRINGE IVPUSH ONE (02:44)
[2024-09-13] MEDS ORDERED: ACETAMINOPHEN 1000 MG/100 ML BAG IVPB PRN (05:36)
[2024-09-13] MEDS ORDERED: GABAPENTIN 300 MG CAPSULE ONE (05:37)
[2024-09-13 06:00] LABS: HEMATOCRIT 39.7 % (32.4-45.2); HEMOGLOBIN 13.5 GM/dL (10.7-15.3); MCH 28.5 pg (25.7-33.7); MCHC 33.9 g/dl (32.0-36.0); MEAN PLT VOLUME 9.1 fl (7.5-11.1); PLATELET COUNT 168 10^3/uL (134-434); RBC 4.72 M/mm3 (3.60-5.2); RDW 13.8 % (11.6-15.6); WHITE BLOOD COUNT 9.7 K/mm3 (4.0-10.0)
[2024-09-13] MEDS: methylPREDNISolone NA SUCC 40 MG/1 ML VIAL IVPUSH SCH (06:22)
[2024-09-13] MEDS: MORPHINE SULFATE 2 MG/ML SYRINGE IVPUSH SCH (06:25)
[2024-09-13] MEDS ORDERED: MORPHINE SULFATE 2 MG/ML SYRINGE IVPUSH PRN (06:38)
[2024-09-13 08:08] LABS: BASO % 0.2 % (0-2.0); EOS % 0.1 % (0-4.5); HEMATOCRIT 37.2 % (32.4-45.2); LYMPH % 15.1 % (8-40); MCH 28.9 pg (25.7-33.7); MEAN CELL VOLUME 82.6 fl (80-96); MEAN PLT VOLUME 8.5 fl (7.5-11.1); MONO % 1.1 % (3.8-10.2); NEUT % 83.5 % (42.8-82.8); PLATELET COUNT 168 10^3/uL (134-434); RDW 13.6 % (11.6-15.6); WHITE BLOOD COUNT 4.6 K/mm3 (4.0-10.0)
[2024-09-13 08:13] LABS: INR 1.07 (0.83-1.09); PROTHROMBIN TIME (PATIENT) 11.7 SEC (9.7-13.0)
[2024-09-13 08:18] LABS: POTASSIUM 4.1 mmol/L (3.5-5.1)
[2024-09-13 08:26] LABS: ALBUMIN 3.9 g/dl (3.4-5.0); CALCIUM 9.1 mg/dL (8.5-10.1)
[2024-09-13 08:30] LABS: CREATININE 0.6 mg/dL (0.55-1.3)
[2024-09-13 08:31] LABS: BILIRUBIN,TOTAL 0.5 mg/dL (0.2-1)
[2024-09-13] MEDS ORDERED: LISINOPRIL 20 MG TABLET ONE (09:56)
[2024-09-13] MEDS ORDERED: PANTOPRAZOLE 40 MG TABLET PO ONE (09:56)
[2024-09-13] MEDS ORDERED: amLODIPine BESYLATE 5 MG TABLET (FP) ONE (09:56)
[2024-09-13] MEDS ORDERED: HYDROCHLOROTHIAZIDE 25 MG TABLET (FP) ONE (09:56)
[2024-09-13] MEDS ORDERED: ASPIRIN COATED 81 MG TABLET.EC ONE (09:56)
[2024-09-13] MEDS ORDERED: ASCORBIC ACID 500 MG TABLET (FP) ONE (09:57)
[2024-09-13] MEDS: LISINOPRIL 20 MG TABLET PO SCH (10:02)
[2024-09-13] MEDS: PANTOPRAZOLE 40 MG TABLET PO SCH (10:02)
[2024-09-13] MEDS: amLODIPine BESYLATE 5 MG TABLET (FP) PO SCH (10:02)
[2024-09-13] MEDS: ASCORBIC ACID 500 MG TABLET (FP) PO SCH (10:02)
[2024-09-13] MEDS: ASPIRIN COATED 81 MG TABLET.EC PO SCH (10:02)
[2024-09-13] MEDS: HYDROCHLOROTHIAZIDE 12.5 MG CAPSULE (FP) PO SCH (10:03)
[2024-09-13] MEDS: CELECOXIB 200 MG CAPSULE PO SCH (10:03)
[2024-09-13] MEDS: IBUPROFEN 600 MG TABLET (FP) PO PRN (22:07)
[2024-09-14 08:11] LABS: BASO % 0.1 % (0-2.0); HEMATOCRIT 36.9 % (32.4-45.2); HEMOGLOBIN 12.5 GM/dL (10.7-15.3); LYMPH % 8.4 % (8-40); MCH 28.3 pg (25.7-33.7); MCHC 33.7 g/dl (32.0-36.0); MEAN PLT VOLUME 8.7 fl (7.5-11.1); MONO % 2.5 % (3.8-10.2); PLATELET COUNT 175 10^3/uL (134-434); RBC 4.39 M/mm3 (3.60-5.2); RDW 13.6 % (11.6-15.6)
[2024-09-14 08:47] LABS: ALBUMIN 3.8 g/dl (3.4-5.0)
[2024-09-14 08:48] LABS: BLOOD UREA NITROGEN 29.3 mg/dL (7-18); MAGNESIUM 2.1 mg/dL (1.8-2.4)
[2024-09-14 08:50] LABS: CALCIUM 9.2 mg/dL (8.5-10.1)
[2024-09-14 08:51] LABS: CREATININE 0.8 mg/dL (0.55-1.3)
[2024-09-14 08:52] LABS: BILIRUBIN,TOTAL 0.6 mg/dL (0.2-1); TOT PROT 6.6 g/dl (6.4-8.2)
[2024-09-14 09:06] VITALS: RESP 18
[2024-09-15 09:19] VITALS: BP 112/58; PULSE 70; TEMP 98.2
== END 2024-09-15 10:16 | disposition home or self-care (01) ==
LOC: JER 13:55 → JERBED 19:36 → J4W 09-13 20:54
PROVIDERS: ADMIT Internal Medicine
PROC: 3E033NZ Introduction of Analgesics, Hypnotics, Sedatives into Peripheral Vein, Percutaneous Approach (ICD-10-PCS; principal; 2024-09-12)
PROC: 3E03329 Introduction of Other Anti-infective into Peripheral Vein, Percutaneous Approach (ICD-10-PCS; 2024-09-12)
PROC: 3E0333Z Introduction of Anti-inflammatory into Peripheral Vein, Percutaneous Approach (ICD-10-PCS; 2024-09-12)
PROC: 3E033GC Introduction of Other Therapeutic Substance into Peripheral Vein, Percutaneous Approach (ICD-10-PCS; 2024-09-12)
DX: J93.83 Other pneumothorax (principal); J20.9 Acute bronchitis, unspecified; G89.29 Other chronic pain; I10 Essential (primary) hypertension; E78.5 Hyperlipidemia, unspecified; K21.9 Gastro-esophageal reflux disease without esophagitis; K76.0 Fatty (change of) liver, not elsewhere classified; K74.60 Unspecified cirrhosis of liver; E03.9 Hypothyroidism, unspecified
CPT/HCPCS: 0241U-QW; 36415; 71045-TC-FY; 71250-TC; 80053; 83036; 83735; 83880; 84484; 85025; 85027; 85610; 85730; 87070; 87205; 93005; 93010; 96374; 96375; 96376; 99291; G0378; J0131

== ENCOUNTER 2025-03-18 10:42 | Emergency (ER) | payer OTHER ==
[2025-03-18 10:49] VITALS: TEMP 98.4; BMI 25.2
[2025-03-18 12:12] LABS: ABSOLUTE IMMATURE GRANULOCYTES 0.01 x10^3/uL (0.0-0.031); BASOPHILS # 0.01 x10^3/uL (0.01-0.08); EOSINOPHIL % 1.2 % (0.7-5.8); EOSINOPHILS # 0.05 x10^3/uL (0.04-0.36); MCHC 33.1 g/dl (32.2-35.5); MEAN CELL VOLUME 84.6 fl (79.4-94.8); MEAN PLT VOLUME 10.6 fl (9.4-12.3); MONOCYTE # 0.39 x10^3/uL (0.24-0.86); MONOCYTE % 9.5 % (4.7-12.5); RDW 13.1 % (12.4-16.6)
[2025-03-18 12:19] LABS: INR 1.03 (0.83-1.09); PROTHROMBIN TIME (PATIENT) 11.3 SEC (9.7-13.0)
[2025-03-18 12:22] LABS: ACTIVATED PTT 30.6 SECONDS (25.2-36.5)
[2025-03-18 13:13] LABS: GLUCOSE,RANDOM 95.0 mg/dL (74-106); TOT PROT 7.0 g/dl (6.4-8.2)
[2025-03-18 13:14] LABS: CO2 24.0 mmol/L (21-32)
[2025-03-18 13:16] LABS: ALK PHOS 63.0 U/L (40-150)
[2025-03-18 13:19] LABS: CREATININE 0.66 mg/dL (0.55-1.3); SGOT/AST 59.0 U/L (5-34); SGPT/ALT 74.0 U/L (0-55)
[2025-03-18] MEDS ORDERED: ACETAMINOPHEN INJECTION 100 ML ONE (13:35)
[2025-03-18 13:39] LABS: HCV DIAGNOSTIC IN-HOUSE W/RFLX NON-REACTIVE (NONREACTIVE); HIV INTERPRETATION NEGATIVE (NEGATIVE)
[2025-03-18] MEDS: ACETAMINOPHEN 1000 MG/100 ML BAG IVPB ONE (13:44)
[2025-03-18 14:28] VITALS: BP 109/46; PULSE 70; RESP 18
== END 2025-03-18 15:35 | disposition home or self-care (01) ==
LOC: JER 10:42
PROC: 3E033NZ Introduction of Analgesics, Hypnotics, Sedatives into Peripheral Vein, Percutaneous Approach (ICD-10-PCS; principal; 2025-03-18)
DX: U07.1 COVID-19 (principal); M79.10 Myalgia, unspecified site; R19.7 Diarrhea, unspecified; R50.9 Fever, unspecified; R05.9 Cough, unspecified; R07.9 Chest pain, unspecified
CPT/HCPCS: 36415; 71045-TC-FY; 80053; 84484; 85025; 85610; 85730; 86140; 86803; 86850; 86900; 86901; 87389; 87637-QW; 93005; 93010; 99285-25